=== PATIENT | male | born 1985 | race Asian ===

== ENCOUNTER 2017-07-15 21:38 | Emergency (ER) | payer BC ==
[~2017-07-15] VITALS: Ht 182.9 cm; Wt 112.9 kg
[2017-07-15 21:52] VITALS: Ht 182.9 cm; Wt 112.9 kg
[2017-07-16] VITALS: BP 119/71
== END 2017-07-16 | disposition home or self-care (01) ==
LOC: ED 21:38
DX: S82.61XA Displaced fracture of lateral malleolus of right fibula, initial encounter for closed fracture (principal); W50.0XXA Accidental hit or strike by another person, initial encounter; Y93.67 Activity, basketball; Y92.89 Other specified places as the place of occurrence of the external cause; Y99.8 Other external cause status

== ENCOUNTER 2017-12-08 10:28 | Emergency (ER) | payer BC ==
[~2017-12-08] VITALS: Ht 185.4 cm; Wt 111.6 kg
[2017-12-08 10:39] VITALS: Ht 185.4 cm; Wt 111.6 kg
[2017-12-08 11:20] LABS: CALCIUM 8.7 mg/dL (8.5-10.1); CARBON DIOXIDE 22.5 mmol/L (21-32); CHLORIDE SERUM 102 mmol/L (98-107); CREATININE SERUM 1.2 mg/dL (0.7-1.3); GFR1 > 60 mL/min; GLUCOSE SERUM 95 mg/dL (74-106); POTASSIUM SERUM 3.4 mmol/L (3.5-5.1); SODIUM SERUM 135 mmol/L (136-145)
[2017-12-08 11:25] LABS: ALBUMIN 3.5 g/dL (3.4-5.0); ALKALINE PHOSPHATASE 65 U/L (46-116); ALT/SGPT 23 U/L (16-63); AST/SGOT 19 U/L (15-37); BILIRUBIN TOTAL 0.4 mg/dL (0.20-1.00); LIPASE 105 IU/L (73-393); TOTAL PROTEIN, SERUM 7.1 g/dL (6.4-8.2)
[2017-12-08 11:30] LABS: BASOPHIL % 0.3 % (0-2); PLATELET COUNT 173 x10^3mcL (130-400); RED CELL DISTRIBUTION WIDTH 12.8 % (11.5-14.5)
[2017-12-08 14:27] VITALS: BP 120/58
== END 2017-12-08 14:27 | disposition home or self-care (01) ==
LOC: ED 10:28
PROVIDERS: Emergency Medicine
DX: K52.9 Noninfective gastroenteritis and colitis, unspecified (principal)
CPT/HCPCS: 87046; 87046-59; J1885; J2405; J7030; Q9967